=== PATIENT | male | born 1965 | race Caucasian/White ===

== ENCOUNTER 2018-02-24 11:26 | Emergency (ER) | payer MEDICAID ==
[~2018-02-24] VITALS: Ht 167.6 cm; Wt 81.4 kg
[2018-02-24] MEDS ORDERED: MORPHINE SULFATE 4 MG/ML, 1ML IVPush PRN (12:00)
[2018-02-24] MEDS ORDERED: ONDANSETRON ODT 4 MG PO ONE (12:00)
[2018-02-24] MEDS ORDERED: SODIUM CHLORIDE FLUSH 10ML SYR IVF ONE (12:00)
[2018-02-24] MEDS ORDERED: KETOROLAC 30 MG/1 ML IVPush ONE (12:00)
[2018-02-24 12:15] LABS: BASOPHILS # (AUTO) 0.09 x10^3/uL (0-0.1); BASOPHILS % (AUTO) 1 % (0-1); EOSINOPHILS # (AUTO) 0.08 x10^3/uL (0-0.4); EOSINOPHILS % (AUTO) 1 % (1-7); LYMPHOCYTES # (AUTO) 1.37 x10^3/uL (1-3.4); LYMPHOCYTES % (AUTO) 12 % (22-44); MD NO; MEAN CORPUSCULAR HGB CONC 34.5 g/dL (33.2-36.2); MEAN CORPUSCULAR VOLUME 89.7 fL (81-97); MONOCYTES # (AUTO) 0.82 x10^3/uL (0.2-0.8); MONOCYTES % (AUTO) 7 % (2-9); NEUTROPHILS # (AUTO) 8.91 x10^3/uL (1.8-6.8); NEUTROPHILS % (AUTO) 79 % (42-75); PLATELET COUNT 353 x10^3/uL (130-400); RED BLOOD COUNT 5.07 x10^6/uL (4.38-5.82); RED CELL DISTRIBUTION WIDTH 12.9 % (9.4-14.8)
[2018-02-24 12:23] LABS: MICROSCOPIC AUTO
[2018-02-24 12:26] LABS: CALCIUM 9.2 mg/dL (8.5-10.1); CHLORIDE 102 mmol/L (98-107)
[2018-02-24 12:29] LABS: ALBUMIN 3.5 g/dL (3.4-5.0); ANION GAP 9 mmol/L (5-15); CREATININE 1.55 mg/dL (0.7-1.3)
[2018-02-24 12:33] LABS: CULTURE INDICATED? YES
[2018-02-24] MEDS ORDERED: ONDANSETRON ODT 4 MG ONE (12:46)
[2018-02-24] MEDS ORDERED: KETOROLAC 30 MG/1 ML ONE (12:46)
[2018-02-24] MEDS ORDERED: MORPHINE SULFATE 4 MG/ML, 1ML ONE (12:47)
[2018-02-24 14:50] VITALS: BP 140/86
== END 2018-02-24 14:55 | disposition home or self-care (01) ==
LOC: ED 14:30
DX: N20.2 Calculus of kidney with calculus of ureter (principal); F17.200 Nicotine dependence, unspecified, uncomplicated
CPT/HCPCS: 36415; 74018; 80048; 81001; 82040; 85025; 87086; 96374; 96375; 99285; J1885; Q0162

== ENCOUNTER 2018-08-20 20:48 | Emergency (ER) | payer MEDICAID ==
[~2018-08-20] VITALS: Ht 170.2 cm; Wt 87.2 kg
[2018-08-20] MEDS ORDERED: ONDANSETRON 2MG/ML, 2ML IVPush ONE (21:30)
[2018-08-20] MEDS ORDERED: MORPHINE SULFATE 4 MG/ML, 1ML IVPush PRN (21:30)
[2018-08-20] MEDS ORDERED: KETOROLAC 30 MG/1 ML IVPush ONE (21:30)
[2018-08-20] MEDS ORDERED: SODIUM CHLORIDE FLUSH 10ML SYR IVF ONE (21:30)
[2018-08-20 22:10] LABS: BASOPHILS # (AUTO) 0.06 x10^3/uL (0-0.1); BASOPHILS % (AUTO) 1 % (0-1); EOSINOPHILS # (AUTO) 0.13 x10^3/uL (0-0.4); EOSINOPHILS % (AUTO) 1 % (1-7); LYMPHOCYTES # (AUTO) 1.66 x10^3/uL (1-3.4); LYMPHOCYTES % (AUTO) 16 % (22-44); MD NO; MEAN CORPUSCULAR HGB CONC 33.3 g/dL (33.2-36.2); MEAN CORPUSCULAR VOLUME 90.2 fL (81-97); MEAN PLATELET VOLUME 7.1 fL (7.4-10.4); MONOCYTES # (AUTO) 0.57 x10^3/uL (0.2-0.8); MONOCYTES % (AUTO) 6 % (2-9); NEUTROPHILS # (AUTO) 7.98 x10^3/uL (1.8-6.8); NEUTROPHILS % (AUTO) 77 % (42-75); PLATELET COUNT 391 x10^3/uL (130-400); RED CELL DISTRIBUTION WIDTH 13.3 % (9.4-14.8)
[2018-08-20 22:21] LABS: ALANINE AMINOTRANSFERASE 39 U/L (12-78); ANION GAP 4 mmol/L (5-15); CALCIUM 9.7 mg/dL (8.5-10.1); CHLORIDE 105 mmol/L (98-107); CREATININE 1.27 mg/dL (0.7-1.3)
[2018-08-20 22:23] LABS: ALKALINE PHOSPHATASE 96 U/L (45-117); BILIRUBIN,TOTAL 0.5 mg/dL (0.2-1.0)
--- NOTE | 2018-08-21 00:03 | NUR ---
STAFF ATTORNEY: PT WALKED BACK FROM LOBBY TO ROOM. STEADY UPON AMBULATION.
--- NOTE | 2018-08-21 00:25 | NUR ---
PT HERE FOR RLQ and RIGHT SCROTAL PAIN. PT ADVISED THAT UA IS NEEDED. PT UNABLE TO URINATE AT THIS TIME. PT ADVISED THAT HE WILL BE MEDICATED WHEN UA IS OBTAINED.
[2018-08-21 01:28] VITALS: BP 146/96
--- NOTE | 2018-08-21 01:28 | NUR ---
PT STILL UNABLE TO URINATE. VSS. AWARE. CALL LIGHT IN REACH
--- NOTE | 2018-08-21 01:58 | NUR ---
pt refusin cath and refusing to give ua. pt to be discharged.
--- NOTE | 2018-08-21 02:05 | NUR ---
PT LEFT PRIOR TO RECIEVING DISCHARGE INSTUCTIONS AND RX. AWARE.
== END 2018-08-21 02:07 | disposition left against medical advice (07) ==
LOC: ED 23:59
DX: J15.9 Unspecified bacterial pneumonia (principal); R10.9 Unspecified abdominal pain; F17.200 Nicotine dependence, unspecified, uncomplicated
CPT/HCPCS: 36415; 71046; 74176; 76870; 80053; 83690; 85025; 99284

== ENCOUNTER 2018-10-20 15:34 | Emergency (ER) | payer MEDICAID ==
[~2018-10-20] VITALS: Ht 170.2 cm; Wt 83.9 kg
[2018-10-20] MEDS ORDERED: SODIUM CHLORIDE 0.9% 1,000ML IVBOLUS ONE (16:00)
[2018-10-20] MEDS ORDERED: SODIUM CHLORIDE FLUSH 10ML SYR IVF ONE (16:00)
[2018-10-20] MEDS ORDERED: ONDANSETRON 2MG/ML, 2ML IVPush ONE (16:00)
[2018-10-20 16:22] LABS: BASOPHILS # (AUTO) 0.03 x10^3/uL (0-0.1); BASOPHILS % (AUTO) 0 % (0-1); EOSINOPHILS # (AUTO) 0.14 x10^3/uL (0-0.4); EOSINOPHILS % (AUTO) 1 % (1-7); LYMPHOCYTES # (AUTO) 1.49 x10^3/uL (1-3.4); LYMPHOCYTES % (AUTO) 14 % (22-44); MD NO; MEAN CORPUSCULAR HEMOGLOBIN 30.1 pg (27.5-34.5); MEAN CORPUSCULAR HGB CONC 33.1 g/dL (33.2-36.2); MEAN CORPUSCULAR VOLUME 90.8 fL (81-97); MEAN PLATELET VOLUME 6.6 fL (7.4-10.4); MONOCYTES # (AUTO) 0.38 x10^3/uL (0.2-0.8); MONOCYTES % (AUTO) 3 % (2-9); NEUTROPHILS # (AUTO) 8.98 x10^3/uL (1.8-6.8); NEUTROPHILS % (AUTO) 82 % (42-75); PLATELET COUNT 325 x10^3/uL (130-400); RED BLOOD COUNT 5.28 x10^6/uL (4.38-5.82)
[2018-10-20] MEDS ORDERED: ONDANSETRON 2MG/ML, 2ML ONE (16:26)
[2018-10-20] MEDS ORDERED: HYDROmorphone 1 MG/ML, 1ML VIAL ONE ×2 (16:27→18:09)
[2018-10-20] MEDS: HYDROmorphone 2 MG/ML, 1ML IVPush PRN ×2 (16:30→18:10)
[2018-10-20 16:34] LABS: ALANINE AMINOTRANSFERASE 33 U/L (12-78); ALBUMIN 3.8 g/dL (3.4-5.0); ANION GAP 4 mmol/L (5-15); CALCIUM 8.5 mg/dL (8.5-10.1); CHLORIDE 107 mmol/L (98-107); CREATININE 1.24 mg/dL (0.7-1.3)
--- NOTE | 2018-10-20 16:35 | NUR ---
SPO2, B/P MONITORS IN PLACE. PT VERBALIZES UNDERSTANDING OF NPO STATUS AT THIS TIME
[2018-10-20 16:36] LABS: ALKALINE PHOSPHATASE 69 U/L (45-117); BILIRUBIN,TOTAL 0.5 mg/dL (0.2-1.0); TOTAL PROTEIN 7.6 g/dL (6.4-8.2)
--- NOTE | 2018-10-20 17:02 | NUR ---
PT STATES HE HAS BEEN HAVING RLQ PAIN FOR 3 YEARS INTERMITTENTLY BUT DOES NOT LIKE TO GO TO DOCTOR. MD EXAM COMPLETED. AWAITING CT
--- NOTE | 2018-10-20 17:19 | NUR ---
TO CT VIA [facility]
[2018-10-20] MEDS ORDERED: OMNIPAQUE 350 MG/ML, 100ML BOTTLE ONE (17:32)
--- NOTE | 2018-10-20 17:57 | NUR ---
PT AMBULATED TO BATHROOM WITHOUT ASSISANCE AND PROVIDED URINE SAMPLE. CONTINUES TO HAVE RLQ PAIN
[2018-10-20 18:09] LABS: MICROSCOPIC NOT IND
--- NOTE | 2018-10-20 18:15 | NUR ---
MEDICATED FOR PAIN PER ORDERS. AWAITING ULTRASOUND STUDY
[2018-10-20 18:24] LABS: CULTURE INDICATED? NO
[2018-10-20] MEDS ORDERED: CEFTRIAXONE 250 MG IM ONE (20:00)
[2018-10-20] MEDS ORDERED: AZITHROMYCIN 500 MG TABLET PO ONE (20:00)
[2018-10-20] MEDS ORDERED: CEFTRIAXONE PMX 1GM/50ML 50 ML ONE (20:11)
[2018-10-20] MEDS ORDERED: AZITHROMYCIN 250 MG TABLET ONE (20:11)
[2018-10-20] MEDS ORDERED: CEFTRIAXONE 250 MG ONE (20:20)
[2018-10-20] MEDS ORDERED: LIDOCAINE-MPF 1%, 2ML ONE (20:20)
[2018-10-20 20:45] VITALS: BP 143/97
--- NOTE | 2018-10-20 20:47 | NUR ---
AFTER MEDICATING WITH ANTIBIOTIC PER ORDERS, PT GIVEN DISCHARGE INSTRUCTIONS AND AMBULATED TO DISCHARGE WINDOW, STEADY GAIT
== END 2018-10-20 20:50 | disposition home or self-care (01) ==
LOC: ED 18:19
DX: N45.1 Epididymitis (principal); F17.200 Nicotine dependence, unspecified, uncomplicated
CPT/HCPCS: 36415; 74177; 76870; 80053; 81003; 83690; 85025; 96372; 96374; 96375; 96376; 99284; J0696; J1170; J2405; J7030; Q9967